=== PATIENT | male | born 1960 | race Two or more races ===

== ENCOUNTER 2020-05-09 08:29 | Inpatient (IN) | payer OTHER ==
[~2020-05-09] VITALS: Ht 175.3 cm; Wt 73.7 kg
[2020-05-09] VITALS (17 sets, daily range): BP systolic 94–139; BP diastolic 43–79
[2020-05-09] MEDS ORDERED: Atropine Sulfate 0.4mg/ml inj IVP ONE (08:45)
[2020-05-09 09:04] LABS: BASOPHILS % (AUTO) 1.4 % (0.0-2.0); EOSINOPHILS % (AUTO) 1.8 % (0.0-3.0); HEMATOCRIT 44.9 % (42.0-52.0); HEMOGLOBIN 14.6 G/DL (14.2-18.0); LYMPHOCYTES % (AUTO) 44.4 % (20.0-45.0); MEAN CORPUSCULAR VOLUME 92 FL (80-99); MONOCYTES % (AUTO) 6.6 % (1.0-10.0); NEUTROPHILS % (AUTO) 45.8 % (45.0-75.0); PLATELET COUNT 236 K/UL (150-450); RED BLOOD COUNT 4.88 M/UL (4.70-6.10); WHITE BLOOD COUNT 7.8 K/UL (4.8-10.8)
--- NOTE | 2020-05-09 09:27 | Emergency Room Report ---
History of Present Illness General Chief Complaint: Syncope Source: Patient, EMS Present Illness HPI Patient is a 59-year-old male who presents after increased generalized weakness and a syncopal episode. Patient a prior history of hypertension had been followed at [facility]. Patient had been noted to be bradycardic by paramedics. He had not been having any vomiting or diarrhea recently. Denies any current chest discomfort or chest pressure.Patient had been at a store.Denies any recent bleeding. Allergies: Coded Allergies: No Known Allergies (Unverified , 05/09/20) COVID-19 Screening Contact w/high risk pt: No Recent Travel to affected area: No Experienced COVID-19 symptoms?: No COVID-19 Testing performed QUARTER DOPER: No Patient History Past Medical History: see triage record Past Surgical History: none Reviewed Nursing Documentation: PMH: Agreed; PSxH: Agreed Nursing Documentation-PMH Hx Hypertension: Yes Review of Systems All Other Systems: negative except mentioned in HPI Physical Exam Vital Signs Date Time Temp Pulse Resp B/P (MAP) Pulse Ox O2 Delivery O2 Flow Rate FiO2 05/09/20 08:22 97.3 37 18 98/54 (69) 05/09/20 08:30 99 Sp02 EP Interpretation: reviewed, normal General Appearance: normal inspection, well appearing, no apparent distress, alert, GCS 15 Head: atraumatic ENT: normal ENT inspection, hearing grossly normal, normal voice Neck: normal inspection, full range of motion, supple, no bony tend Respiratory: normal inspection, lungs clear, normal breath sounds, no respiratory distress, no retraction, no wheezing Cardiovascular #1: no edema, bradycardia Gastrointestinal: normal inspection, normal bowel sounds, non tender, soft, no guarding, no hernia Genitourinary: no CVA tenderness Musculoskeletal: normal inspection, back normal, normal range of motion Neurologic: alert, motor strength/tone normal, 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 Differential diagnosis include was not limited to coronavirus infection, myocardial infarction, medication overdose, sick sinus syndrome among others. Because of complexity of patient's case laboratory tests and imaging studies were ordered. Patient's initial EKG showed bradycardia with wide complex QRS consistent with possible escape rhythm. Patient was given atropine. He was noted to have some improvement in heart rate and blood pressure after medications. Patient was noted to be awake alert and denied having any chest discomfort. Patient is taking Norvasc and this may be contributing the patient's bradycardia. Patient was discussed with [facility] for possible transfer and he authorized for admission to [facility]. Patient's initial troponin was negative. Repeat troponin did not show any significant elevation however it was slightly more increased than baseline. Dr. Jay Colorado was contacted for inpatient management due to capitated physician. Labs Test 05/09/20 08:35 05/09/20 09:57 White Blood Count 7.8 K/UL (4.8-10.8) Red Blood Count 4.88 M/UL (4.70-6.10) Hemoglobin 14.6 G/DL (14.2-18.0) Hematocrit 44.9 % (42.0-52.0) Mean Corpuscular Volume 92 FL (80-99) Mean Corpuscular Hemoglobin 29.9 PG (27.0-31.0) Mean Corpuscular Hemoglobin Concent 32.4 G/DL (32.0-36.0) Red Cell Distribution Width 12.0 % (11.6-14.8) Platelet Count 236 K/UL (150-450) Mean Platelet Volume 6.6 FL (6.5-10.1) Neutrophils (%) (Auto) 45.8 % (45.0-75.0) Lymphocytes (%) (Auto) 44.4 % (20.0-45.0) Monocytes (%) (Auto) 6.6 % (1.0-10.0) Eosinophils (%) (Auto) 1.8 % (0.0-3.0) Basophils (%) (Auto) 1.4 % (0.0-2.0) Prothrombin Time 10.7 SEC (9.30-11.50) Prothromb Time International Ratio 1.0 (0.9-1.1) Activated Partial Thromboplast Time 23 SEC (23-33) D-Dimer 0.21 mg/L FEU (0.00-0.49) Sodium Level 145 MMOL/L (136-145) Potassium Level 3.6 MMOL/L (3.5-5.1) Chloride Level 109 MMOL/L (98-107) Carbon Dioxide Level 26 MMOL/L (21-32) Anion Gap 10 mmol/L (5-15) Blood Urea Nitrogen 20 mg/dL (7-18) Creatinine 1.3 MG/DL (0.55-1.30) Estimat Glomerular Filtration Rate 56.3 mL/min (>60) Glucose Level 129 MG/DL (74-106) Calcium Level 8.5 MG/DL (8.5-10.1) Total Bilirubin 0.5 MG/DL (0.2-1.0) Aspartate Amino Transf (AST/SGOT) 24 U/L (15-37) Alanine Aminotransferase (ALT/SGPT) 26 U/L (12-78) Alkaline Phosphatase 54 U/L (46-116) Pro-B-Type Natriuretic Peptide 124 pg/mL (0-125) Total Protein 6.8 G/DL (6.4-8.2) Albumin 3.4 G/DL (3.4-5.0) Globulin 3.4 g/dL Albumin/Globulin Ratio 1.0 (1.0-2.7) Lipase 204 U/L (73-393) Troponin I 0.046 ng/mL (0.000-0.056) EKG Diagnostic Results Rate: bradycardiac Rhythm: other - sinus vs junctional Rhythm Strip Diag. Results EP Interpretation: yes Rhythm: no PVC's, no ectopy Last Vital Signs Date Time Temp Pulse Resp B/P (MAP) Pulse Ox O2 Delivery O2 Flow Rate FiO2 05/09/20 09:04 47 106/47 05/09/20 08:54 16 99 05/09/20 08:30 97.3 Status: improved Disposition: ADMITTED INPATIENT Condition: Critical Referrals: [facility] (PCP) Norbert Diaz MD May 09, 2020 09:27
[2020-05-09 09:29] LABS: ANION GAP 10 mmol/L (5-15); BLOOD UREA NITROGEN 20 mg/dL (7-18); CALCIUM 8.5 MG/DL (8.5-10.1); CARBON DIOXIDE 26 MMOL/L (21-32); CHLORIDE 109 MMOL/L (98-107); CREATININE 1.3 MG/DL (0.55-1.30); POTASSIUM 3.6 MMOL/L (3.5-5.1); SODIUM 145 MMOL/L (136-145)
[2020-05-09] MEDS ORDERED: HYDROCHLOROTH12.5 MG ORAL (09:37)
[2020-05-09] MEDS ORDERED: LOSARTAN POTASS25 MG ORAL (09:37)
[2020-05-09] MEDS ORDERED: AMLODIPINE BESY10 MG ORAL (09:37)
[2020-05-09 09:40] LABS: ALANINE AMINOTRANSFERASE 26 U/L (12-78); ALBUMIN 3.4 G/DL (3.4-5.0); ALKALINE PHOSPHATASE 54 U/L (46-116); ASPARTATE AMINO TRANSFERASE 24 U/L (15-37); BILIRUBIN,TOTAL 0.5 MG/DL (0.2-1.0)
--- NOTE | 2020-05-09 13:14 | History and Physical Report ---
DATE OF ADMISSION: 05/09/2020 REASON FOR ADMISSION: Heart block. HISTORY OF PRESENT ILLNESS: This is a 59-year-old male, who presents with weakness and syncopal episode. The patient with history of hypertension. The patient noted to be significantly bradycardic. In the emergency room, he was given atropine and noted to have significant sinus bradycardia. PAST MEDICAL HISTORY: Notable for hypertension. MEDICATIONS: Reviewed. ALLERGIES: Reviewed. SOCIAL HISTORY: The patient is otherwise independent. REVIEW OF SYSTEMS: Otherwise negative. PHYSICAL EXAMINATION: GENERAL: A well-developed male, comfortable at present. VITAL SIGNS: Essentially stable with the exception of bradycardia. Admit patient's heart rate was 37, improved to 53. HEENT: Negative. NECK: Supple. LUNGS: Good air entry. CARDIAC: Normal S1, S2, bradycardic. ABDOMEN: Soft, nontender. EXTREMITIES: No edema. LABORATORY DATA: Reviewed, essentially insignificant. BUN is only 20. Troponins are negative. Swab negative for COVID. IMPRESSION: 1. Symptomatic bradycardia, possible junctional rhythm. 2. Hypertension. RECOMMENDATION: 1. ICU management. 2. External pacer if needed. 3. Cardiology evaluation. 4. Monitor blood pressure. 5. DVT prophylaxis and discharge to [facility] once stable. 6. Consider pacemaker pending further evaluation and recommendations. Jay Colorado M.D. DR: GROVER JOB#: [id number] CC:
[2020-05-09] MEDS: D5 1/2NS w/KCl 20mEq 1,000 ML IV SCH ×2 (13:19→20:26)
[2020-05-09] MEDS ORDERED: D5 1/2NS w/KCl 20mEq 1,000 ML IV SCH (13:30)
--- NOTE | 2020-05-09 16:04 | Diagnostic Imaging Report ---
Indication: Shortness of breath Technique: One view of the chest Comparison: none Findings: The lungs and pleural spaces are clear. The heart size is normal Impression: Negative
[2020-05-10] VITALS (27 sets, daily range): BP systolic 100–147; BP diastolic 44–121
--- NOTE | 2020-05-10 01:45 | Consultation ---
DATE OF CONSULTATION: 05/09/2020 CARDIOLOGY CONSULTATION CONSULTING PHYSICIAN: Osorio Cho MD. REASON FOR CONSULTATION: Heart block. HISTORY OF PRESENT ILLNESS: This is a 59-year-old male with a history of hypertension, but no other cardiovascular disease. He has had diarrhea and abdominal discomfort since yesterday afternoon. Today, symptoms worsened, but he also felt lightheaded, dizzy and had a witnessed syncopal episode. According to his nephew, who saw him passed out. The patient did not have any loss of bladder or bowel function or seizure activity and he did not have any injury, but just slowly fell down and had his eyes "go backwards." Upon arousal, he was without any confusion either. The patient denies any prior episodes or near syncopal sensation last night. In the emergency room, the patient was given atropine because of significant sinus bradycardia with some improvement in his heart rate noted. PAST MEDICAL HISTORY: Hypertension, , and hyperlipidemia. ALLERGIES: None noted. MEDICATIONS: Prior to admission, losartan, hydrochlorothiazide, amlodipine, Zetia. FAMILY HISTORY: Noncontributory. SOCIAL HISTORY: Negative for smoking, alcohol, or substance abuse. REVIEW OF SYSTEMS: Negative other than noted above. PHYSICAL EXAMINATION: GENERAL: Alert and in no distress. VITAL SIGNS: Blood pressure 105/48, heart rate 55, respirations 18. Monitored sinus bradycardia with bundle-branch block. NECK: Jugular venous pressure normal. LUNGS: Clear. CARDIAC: Regular rhythm. Slow rate. Normal S1, S2 with no murmur. ABDOMEN: Soft. EXTREMITIES: No edema. LABORATORY AND DIAGNOSTIC DATA: EKG, severe sinus bradycardia with left bundle-branch block. TSH 2.2 and troponin negative x2 with potassium 3.6, BUN 20, and creatinine of 1.3. Normal liver function studies and glucose of 129. Natriuretic peptide is 124. IMPRESSION: Advanced conduction system disease with symptomatic bradycardia, resulting in syncope. This may be due to underlying conduction system disease exacerbated by increased vagal tone due to his acute GI symptoms namely diarrhea. PLAN: Recommend ICU cardiac monitoring, telemetry, hydration, potassium replacement as needed. Check magnesium level. Echocardiogram to evaluate further for structural heart disease. Consideration for permanent pacemaker. Atropine at bedside. Osorio Cho M.D. DR: KATERINE JOB#: [id number] CC:
[2020-05-10] MEDS: D5 1/2NS w/KCl 20mEq 1,000 ML IV SCH ×4 (02:50→22:10)
[2020-05-10 06:10] LABS: ALANINE AMINOTRANSFERASE 24 U/L (12-78); ALBUMIN 3.3 G/DL (3.4-5.0); ALKALINE PHOSPHATASE 54 U/L (46-116); ANION GAP 9 mmol/L (5-15); ASPARTATE AMINO TRANSFERASE 21 U/L (15-37); BILIRUBIN,TOTAL 0.5 MG/DL (0.2-1.0); BLOOD UREA NITROGEN 15 mg/dL (7-18); CARBON DIOXIDE 24 MMOL/L (21-32); CHLORIDE 109 MMOL/L (98-107); POTASSIUM 3.8 MMOL/L (3.5-5.1); SODIUM 142 MMOL/L (136-145)
--- NOTE | 2020-05-10 08:35 | General Progress Note ---
Assessment/Plan Assessment/Plan: IMPRESSION: 1. Symptomatic bradycardia, possible junctional rhythm. 2. Hypertension. PLAN atropine PRN ICU care echo may need pacemaker defer to cards impression, plan, and exam edited and reviewed in detail care discussed with RN Subjective Allergies: Coded Allergies: No Known Allergies (Unverified , 05/09/20) Subjective remains bradycardic cards noted Objective Last 24 Hour Vital Signs Date Time Temp Pulse Resp B/P (MAP) Pulse Ox O2 Delivery O2 Flow Rate FiO2 05/10/20 07:00 43 13 131/70 (90) 100 05/10/20 06:00 96.7 47 14 117/68 (84) 100 05/10/20 05:00 40 19 131/66 (87) 99 05/10/20 04:00 37 05/10/20 04:00 Room Air 05/10/20 04:00 37 14 117/64 (81) 97 05/10/20 03:00 45 14 116/62 (80) 99 05/10/20 02:00 39 14 102/44 (63) 98 05/10/20 01:00 37 15 114/63 (80) 98 05/10/20 00:00 97.1 40 15 106/46 (66) 97 05/10/20 00:00 Room Air 05/10/20 00:00 40 05/09/20 23:00 41 15 127/58 (81) 98 05/09/20 22:00 45 15 132/68 (89) 98 05/09/20 21:00 43 15 109/47 (67) 97 05/09/20 20:00 98.1 52 13 132/79 (96) 99 05/09/20 20:00 52 05/09/20 20:00 Room Air 05/09/20 19:00 44 15 121/62 (81) 97 05/09/20 18:00 46 14 121/63 (82) 100 05/09/20 17:00 52 14 123/63 (83) 100 05/09/20 16:00 98.6 46 15 121/59 (79) 99 05/09/20 16:00 Room Air 05/09/20 15:00 46 14 117/60 (79) 99 05/09/20 14:00 72 13 114/61 (78) 98 05/09/20 13:00 62 19 116/59 (78) 99 05/09/20 12:58 2.0 05/09/20 12:43 Room Air 05/09/20 12:00 55 05/09/20 12:00 98.2 56 19 139/61 (87) 100 05/09/20 11:45 97.5 55 18 105/48 97 Room Air 05/09/20 11:04 97.6 53 17 108/50 98 Room Air 05/09/20 09:29 51 106/47 05/09/20 09:04 47 106/47 05/09/20 08:54 46 16 96/48 99 Intake and Output 05/09/20 05/10/20 19:00 07:00 Intake Total 3230 ml 1960 ml Output Total 550 ml 1800 ml Balance 2680 ml 160 ml Intake Oral 480 ml 350 ml IV Total 2750 ml 1610 ml Output Urine Total 550 ml 1800 ml # Voids 1 Laboratory Tests 05/09/20 08:35: White Blood Count 7.8, Red Blood Count 4.88, Hemoglobin 14.6, Hematocrit 44.9, Mean Corpuscular Volume 92, Mean Corpuscular Hemoglobin 29.9, Mean Corpuscular Hemoglobin Concent 32.4, Red Cell Distribution Width 12.0, Platelet Count 236, Mean Platelet Volume 6.6, Neutrophils (%) (Auto) 45.8, Lymphocytes (%) (Auto) 44.4, Monocytes (%) (Auto) 6.6, Eosinophils (%) (Auto) 1.8, Basophils (%) (Auto ) 1.4, Prothrombin Time 10.7, Prothromb Time International Ratio 1.0, Activated Partial Thromboplast Time 23, D-Dimer 0.21, Sodium Level 145, Potassium Level 3.6, Chloride Level 109H, Carbon Dioxide Level 26, Anion Gap 10, Blood Urea Nitrogen 20H, Creatinine 1.3, Estimat Glomerular Filtration Rate 56.3, Glucose Level 129H, Calcium Level 8.5, Total Bilirubin 0.5, Aspartate Amino Transf (AST/ SGOT) 24, Alanine Aminotransferase (ALT/SGPT) 26, Alkaline Phosphatase 54, Troponin I 0.041, Pro-B-Type Natriuretic Peptide 124, Total Protein 6.8, Albumin 3.4, Globulin 3.4, Albumin/Globulin Ratio 1.0, Lipase 204 05/09/20 09:57: Troponin I 0.046, Thyroid Stimulating Hormone (TSH) 2.273 05/10/20 04:30: Sodium Level 142, Potassium Level 3.8, Chloride Level 109H, Carbon Dioxide Level 24, Anion Gap 9, Blood Urea Nitrogen 15, Creatinine 1.0, Estimat Glomerular Filtration Rate > 60, Glucose Level 109H, Calcium Level 8.0L, Total Bilirubin 0.5, Aspartate Amino Transf (AST/SGOT) 21, Alanine Aminotransferase ( ALT/SGPT) 24, Alkaline Phosphatase 54, Total Protein 6.6, Albumin 3.3L, Globulin 3.3, Albumin/Globulin Ratio 1.0, Magnesium Level 2.1 Height (Feet): 5 Height (Inches): 9.00 Weight (Pounds): 171 Objective GENERAL: A well-developed male, comfortable at present. HEENT: Negative. NECK: Supple. LUNGS: Good air entry. CARDIAC: Normal S1, S2, bradycardic. ABDOMEN: Soft, nontender. EXTREMITIES: No edema. Jay Colorado MD May 10, 2020 08:35
[2020-05-10] MEDS: Losartan 50mg tab ORAL SCH (09:31)
[2020-05-10] MEDS: Heparin 5000 units/ml inj SUBQ SCH ×2 (09:33→20:51)
--- NOTE | 2020-05-10 18:18 | Cardiac Electrophysiology PN ---
Subjective Subjective Patient seen and examined. Agree with PPM implant. Will keep NPO after [place]. If authorization obtained from [place] will proceed tomorrow depending on OR availability Dictated# [id number] Objective Last 24 Hour Vital Signs Date Time Temp Pulse Resp B/P (MAP) Pulse Ox O2 Delivery O2 Flow Rate FiO2 05/10/20 17:00 55 11 138/69 (92) 100 05/10/20 16:00 Room Air 05/10/20 16:00 53 05/10/20 16:00 98.8 45 16 136/83 (100) 99 05/10/20 15:00 48 16 126/58 (80) 100 05/10/20 14:00 51 11 127/64 (85) 100 05/10/20 13:00 51 18 125/61 (82) 98 05/10/20 12:09 53 05/10/20 12:09 58 18 100/86 (91) 98 05/10/20 12:08 Room Air 05/10/20 11:07 98.3 48 18 135/65 (88) 99 05/10/20 11:00 52 14 146/91 (109) 100 05/10/20 10:00 53 15 139/73 (95) 100 05/10/20 09:31 130/61 05/10/20 09:24 55 17 130/61 (84) 98 05/10/20 09:18 57 130/67 (88) 05/10/20 09:00 56 13 134/121 (125) 99 05/10/20 08:00 Room Air 05/10/20 08:00 98.8 57 17 129/103 (112) 98 05/10/20 08:00 54 05/10/20 07:00 43 13 131/70 (90) 100 05/10/20 06:00 96.7 47 14 117/68 (84) 100 05/10/20 05:00 40 19 131/66 (87) 99 05/10/20 04:00 37 05/10/20 04:00 Room Air 05/10/20 04:00 37 14 117/64 (81) 97 05/10/20 03:00 45 14 116/62 (80) 99 05/10/20 02:00 39 14 102/44 (63) 98 05/10/20 01:00 37 15 114/63 (80) 98 05/10/20 00:00 97.1 40 15 106/46 (66) 97 05/10/20 00:00 Room Air 05/10/20 00:00 40 05/09/20 23:00 41 15 127/58 (81) 98 05/09/20 22:00 45 15 132/68 (89) 98 05/09/20 21:00 43 15 109/47 (67) 97 05/09/20 20:00 98.1 52 13 132/79 (96) 99 05/09/20 20:00 52 05/09/20 20:00 Room Air 05/09/20 19:00 44 15 121/62 (81) 97 Intake and Output 05/09/20 05/10/20 19:00 07:00 Intake Total 3230 ml 2160 ml Output Total 550 ml 1800 ml Balance 2680 ml 360 ml Intake Oral 480 ml 550 ml IV Total 2750 ml 1610 ml Output Urine Total 550 ml 1800 ml # Voids 1 Laboratory Tests Test 05/10/20 04:30 Sodium Level 142 MMOL/L (136-145) Potassium Level 3.8 MMOL/L (3.5-5.1) Chloride Level 109 MMOL/L (98-107) H Carbon Dioxide Level 24 MMOL/L (21-32) Anion Gap 9 mmol/L (5-15) Blood Urea Nitrogen 15 mg/dL (7-18) Creatinine 1.0 MG/DL (0.55-1.30) Estimat Glomerular Filtration Rate > 60 mL/min (>60) Glucose Level 109 MG/DL (74-106) H Calcium Level 8.0 MG/DL (8.5-10.1) L Magnesium Level 2.1 MG/DL (1.8-2.4) Total Bilirubin 0.5 MG/DL (0.2-1.0) Aspartate Amino Transf (AST/SGOT) 21 U/L (15-37) Alanine Aminotransferase (ALT/SGPT) 24 U/L (12-78) Alkaline Phosphatase 54 U/L (46-116) Total Protein 6.6 G/DL (6.4-8.2) Albumin 3.3 G/DL (3.4-5.0) L Globulin 3.3 g/dL Albumin/Globulin Ratio 1.0 (1.0-2.7) Microbiology Date/Time Source Procedure Growth Status 05/09/20 09:36 Nasopharynx SARS-CoV-2 RdRp Gene Assay - Final Complete 05/09/20 11:11 Rectum Received Reji Biswas MD May 10, 2020 18:18
--- NOTE | 2020-05-10 21:59 | Consultation ---
DATE OF CONSULTATION: 05/10/2020 CARDIAC ELECTROPHYSIOLOGY CONSULTATION CONSULTING PHYSICIAN: Reji Biswas MD. REFERRING PHYSICIAN: Osorio Cho MD. REASON FOR CONSULTATION: Profound bradycardia due to complete heart block and heart rate in the 30s. HISTORY OF PRESENT ILLNESS: The patient is a very pleasant 59-year-old gentleman with history of hypertension and no cardiovascular disease, who was admitted to the hospital with a syncopal episode that was witnessed. This was witnessed by the patient's nephew. The patient did not have any bowel or bladder dysfunction or seizure-like activity. Upon arousal, the patient did not have any confusion either. In the emergency room, the patient was found to be with profound bradycardia with complete left bundle-branch block and sinus bradycardia with rate in the 30s, and the patient received atropine and was admitted to intensive care unit. Cardiac electrophysiology consultation was requested by Dr. Cho, who is a screwdown operator to evaluate the patient for permanent pacemaker placement. REVIEW OF SYSTEMS: Negative other than what was mentioned in the history of present illness. PAST MEDICAL HISTORY: Includes hypertension only and hyperlipidemia. MEDICATIONS: Include losartan, hydrochlorothiazide, amlodipine, and Zetia. It is of note the patient is off any AV miri blocking agents. FAMILY HISTORY: Noncontributory. SOCIAL HISTORY: Does not smoke or drink alcohol. PHYSICAL EXAMINATION: VITAL SIGNS: Show blood pressure of 138/69, pulse is 44, respirations 18, and he is afebrile. HEAD AND NECK: Showed no JVD or carotid bruit. LUNGS: Clear. CARDIOVASCULAR: Shows bradycardic S1 and S2 with no gallop or murmur. ABDOMEN: Soft. EXTREMITIES: No pitting edema. LABORATORY AND DIAGNOSTIC DATA: His EKG showed marked sinus bradycardia, rate of 37 with complete left bundle-branch block. His telemetry strip showed episodes of heart block with junctional rhythm in the 30s. Labs show white count of 7.8, hematocrit of 14.7, hematocrit of 45, and platelet count 236,000. Sodium 142, potassium 3.8, BUN of 15, creatinine of 1. Troponin negative x2 and TSH is 2.2. ASSESSMENT AND PLAN: Profound bradycardia causing syncope in the patient with underlying complete left bundle-branch block and intermittent complete heart block with junctional escape in the 30s. The patient is not on any sinus miri or AV miri blocking agents. Thyroid function tests are within normal range and he was already ruled out for myocardial infarction. The patient's echocardiogram also showed normal left ventricular systolic function. He is a class 1 indication for permanent pacemaker implantation; however, the patient is a [place] member. We will keep the patient in ICU until the patient is either transferred to [place] or we will get authorization to proceed with permanent pacemaker placement. I discussed with the patient the risks, benefits, and alternatives of permanent pacemaker implantation. He agrees and would like to proceed. Reji Biswas M.D. DR: Selena JOB#: [id number] CC:
--- NOTE | 2020-05-10 23:00 | Progress Note ---
DATE: 05/10/2020 SUBJECTIVE: The patient has remained in bed rest. Monitored rhythm, sinus bradycardia with arrhythmia, no pauses. Left bundle-branch block persists. No nausea, vomiting. No diarrhea. No chest pain or shortness of breath. Echocardiogram revealed normal ejection fraction and mild concentric hypertrophy. The patient now relays that he has had slow heart rates in the past and has been told by other physicians that he may need a pacemaker. PHYSICAL EXAMINATION: VITAL SIGNS: Blood pressure 147/70, pulse 58, respirations 16. LUNGS: Clear. CARDIAC: Regular. Slow S1 and S2. ABDOMEN: Soft. EXTREMITIES: No edema. IMPRESSION: 1. Advanced symptomatic conduction system disease. 2. Persisting sinus bradycardia and left bundle-branch block with syncopal episodes yesterday. PLAN: 1. Keep electrophysiologic evaluation urgently for permanent pacemaker. 2. Hold antihypertensives, namely losartan, amlodipine, hydrochlorothiazide. Osorio Cho M.D. DR: JAI JOB#: [id number] CC:
[2020-05-11] VITALS (43 sets, daily range): BP systolic 103–163; BP diastolic 47–93
[2020-05-11 05:07] LABS: BASOPHILS % (AUTO) 1.2 % (0.0-2.0); EOSINOPHILS % (AUTO) 2.3 % (0.0-3.0); HEMATOCRIT 44.6 % (42.0-52.0); HEMOGLOBIN 14.6 G/DL (14.2-18.0); MEAN CORPUSCULAR VOLUME 92 FL (80-99); MONOCYTES % (AUTO) 7.2 % (1.0-10.0); NEUTROPHILS % (AUTO) 52.4 % (45.0-75.0); PLATELET COUNT 242 K/UL (150-450); RED BLOOD COUNT 4.84 M/UL (4.70-6.10); RED CELL DISTRIBUTION WIDTH 12.2 % (11.6-14.8); WHITE BLOOD COUNT 7.5 K/UL (4.8-10.8)
[2020-05-11] MEDS: D5 1/2NS w/KCl 20mEq 1,000 ML IV SCH ×3 (05:31→18:45)
[2020-05-11 06:04] LABS: ANION GAP 11 mmol/L (5-15); BLOOD UREA NITROGEN 12 mg/dL (7-18); CALCIUM 8.4 MG/DL (8.5-10.1); CARBON DIOXIDE 22 MMOL/L (21-32); CHLORIDE 108 MMOL/L (98-107); CREATININE 0.8 MG/DL (0.55-1.30); POTASSIUM 4.8 MMOL/L (3.5-5.1); SODIUM 141 MMOL/L (136-145)
[2020-05-11 06:19] LABS: INR 1.1 (0.9-1.1)
[2020-05-11] MEDS: Heparin 5000 units/ml inj SUBQ SCH ×2 (08:36→20:40)
[2020-05-11] MEDS: Losartan 50mg tab ORAL SCH (08:36)
[2020-05-11] MEDS ORDERED: Isovue-M 300 15ml INJ ONE (09:30)
[2020-05-11] MEDS ORDERED: Lidocaine 1% Plain 30 ml INJ ONE (09:30)
[2020-05-11] MEDS ORDERED: Sodium Chloride 10ml vial INJ ONE ×2 (10:27→10:28)
[2020-05-11] MEDS ORDERED: LR 1000ml 1,000 ML IVLG SCH (10:35)
--- NOTE | 2020-05-11 10:38 | Pre-Procedure Note/Attestation ---
Pre-Procedure Note/Attestation Complete Prior to Procedure Planned Procedure: left Indications for Procedure Pre-Operative Diagnosis: Symptomatic bradycardia, SSS, Intermittent CHB, Syncope Attestation I attest that I discussed the nature of the procedure; its benefits; risks and complications; and alternatives (and the risks and benefits of such alternatives ), prior to the procedure, with the patient (or the patient's legal pharmaceutical sales representative). I attest that, if there was a reasonable possibility of needing a blood transfusion, the patient (or the patient's legal pharmaceutical sales representative) was given the [facility] standardized written summary, pursuant to the Bal Rajiv Blood Safety Act ([place] Health and Safety Code # 1645, as amended). I attest that I re-evaluated the patient just prior to the surgery and that there has been no change in the patient's H&P, except as documented below: Reji Biswas MD May 11, 2020 10:38
--- NOTE | 2020-05-11 10:39 | Anethesia Preoperative Eval ---
Anesthesia Pre-op PMH/ROS General Date of Evaluation: May 11, 2020 Time of Evaluation: 10:31 Anesthesiologist: Fish ASA Score: ASA 3 Mallampati Score Class I : Soft palate, uvula, fauces, pillars visible Class II: Soft palate, uvula, fauces visible Class III: Soft palate, base of uvula visible Class IV: Only hard plate visible Mallampati Classification: Class II Surgeon: Zulay Diagnosis: Bradycardia, CHB Surgical Procedure: Permanent Pacemaker Placement Anesthesia History: none Family History: no anesthesia problems Allergies: Coded Allergies: No Known Allergies (Unverified , 05/09/20) Medications: see eMAR Patient NPO?: Yes Past Medical History Cardiovascular: Reports: HTN, arrhythmia - CHB Hr=30s Anesthesia Pre-op Phys. Exam Physician Exam Last Vital Signs Date Time Temp Pulse Resp B/P (MAP) Pulse Ox O2 Delivery O2 Flow Rate FiO2 05/11/20 10:00 59 16 115/93 (100) 97 05/11/20 08:00 98.1 05/11/20 08:00 Room Air 05/09/20 12:58 2.0 Constitutional: NAD Neurologic: CN 2-12 intact Cardiovascular: RRR Respiratory: CTA Gastrointestinal: S/NT/ND Airway Exam Mallampati Score: Class II MO: full ROM: full Teeth: missing, intact Anesthesia Pre-op A/P Labs Hematology Test 05/11/20 03:40 White Blood Count 7.5 K/UL (4.8-10.8) Red Blood Count 4.84 M/UL (4.70-6.10) Hemoglobin 14.6 G/DL (14.2-18.0) Hematocrit 44.6 % (42.0-52.0) Mean Corpuscular Volume 92 FL (80-99) Mean Corpuscular Hemoglobin 30.1 PG (27.0-31.0) Mean Corpuscular Hemoglobin Concent 32.7 G/DL (32.0-36.0) Red Cell Distribution Width 12.2 % (11.6-14.8) Platelet Count 242 K/UL (150-450) Mean Platelet Volume 6.5 FL (6.5-10.1) Neutrophils (%) (Auto) 52.4 % (45.0-75.0) Lymphocytes (%) (Auto) 37.0 % (20.0-45.0) Monocytes (%) (Auto) 7.2 % (1.0-10.0) Eosinophils (%) (Auto) 2.3 % (0.0-3.0) Basophils (%) (Auto) 1.2 % (0.0-2.0) Coagulation Test 05/11/20 03:40 Prothrombin Time 11.7 SEC (9.30-11.50) H Prothromb Time International Ratio 1.1 (0.9-1.1) Activated Partial Thromboplast Time 28 SEC (23-33) Chemistry Test 05/11/20 03:40 Sodium Level 141 MMOL/L (136-145) Potassium Level 4.8 MMOL/L (3.5-5.1) Chloride Level 108 MMOL/L (98-107) H Carbon Dioxide Level 22 MMOL/L (21-32) Anion Gap 11 mmol/L (5-15) Blood Urea Nitrogen 12 mg/dL (7-18) Creatinine 0.8 MG/DL (0.55-1.30) Estimat Glomerular Filtration Rate > 60 mL/min (>60) Glucose Level 93 MG/DL (74-106) Calcium Level 8.4 MG/DL (8.5-10.1) L Risk Assessment & Plan Assessment: ASA 3 Plan: TIVA Status Change Before Surgery: No Pre-Antibiotics Dru Gram Ancef IV Given Within 1 Hr of Incision: Yes Time Given: 10:46 Aubrey Whitten MD May 11, 2020 10:39
--- NOTE | 2020-05-11 10:43 | Immediate Post-Op Evaluation ---
Immediate Post-Op Evalulation Immediate Post-Op Evalulation Procedure: Permanent Pacemaker Placement Date of Evaluation: May 11, 2020 Time of Evaluation: 12:08 IV Fluids: 400 LR Blood Products: 0 Estimated Blood Loss: 5 Urinary Output: 0 Blood Pressure Systolic: 108 Blood Pressure Diastolic: 61 Pulse Rate: 70 Respiratory Rate: 16 O2 Sat by Pulse Oximetry: 100 Temperature (Fahrenheit): 97.8 Pain Score (1-10): 2 Nausea: No Vomiting: No Complications 0 Patient Status: awake, reacts, patent, none Hydration Status: adequate Dru Gram Ancef IV Given Within 1 Hr of Incision: Yes Time Given: 10:46 Aubrey Whitten MD May 11, 2020 10:43
[2020-05-11] MEDS ORDERED: Meperidine 25mg/0.5ml Inj (FOR RIGORS ONLY) IV PRN (10:45)
[2020-05-11] MEDS ORDERED: oxyCODONE HCL/Acetaminophen 5/325mg ORAL PRN (10:45)
[2020-05-11] MEDS ORDERED: Labetalol 5mg/ml 20ml vial IV PRN (10:45)
[2020-05-11] MEDS ORDERED: Midazolam 2mg/2ml Inj IVP PRN (10:45)
[2020-05-11] MEDS ORDERED: Metoclopramide 10mg/2ml Inj IVP PRN (10:45)
[2020-05-11] MEDS ORDERED: Atropine Sulfate 0.4mg/ml inj IVP PRN (10:45)
[2020-05-11] MEDS ORDERED: fentaNYL 100 mcg/2 mL IV PRN (10:45)
[2020-05-11] MEDS ORDERED: Hydromorphone 0.5mg/0.5ml inj IVP PRN (10:45)
[2020-05-11] MEDS ORDERED: LORazepam Inj 2mg/ml 1ml IV PRN (10:45)
[2020-05-11] MEDS ORDERED: HYDROcodone/Acetamin 5/325 tab ORAL PRN (10:45)
[2020-05-11] MEDS ORDERED: HYDROcodone/Acetamin 7.5/325 tab ORAL PRN (10:45)
[2020-05-11] MEDS ORDERED: DiphenhydrAMINE 50mg/ml Inj IVP PRN (10:45)
[2020-05-11] MEDS ORDERED: Glycopyrrolate 0.2mg/ml 1ml Vial ONE (10:57)
[2020-05-11] MEDS ORDERED: Atropine Inj 1mg/10ml Syr ONE (11:04)
[2020-05-11] MEDS ORDERED: NS 275ml IRRIG ONE (11:18)
--- NOTE | 2020-05-11 11:50 | Brief Operative Note ---
Immediate Post Operative Note Operative Note Pre-op Diagnosis: Symptomatic bradycardia, SSS, Intermittent CHB, Syncope Procedure: DDD [employer] PPM implant Post-op Diagnosis: same as pre-op Specimen: none Complications: none Condition: stable Fluids: none Estimated Blood Loss: minimal Implant(s) used?: Yes Reji Biswas MD May 11, 2020 11:50
[2020-05-11] MEDS ORDERED: Morphine Sulfate 2mg/ml Inj(IV/IM USE ONLY) IVP PRN (12:00)
--- NOTE | 2020-05-11 13:28 | Diagnostic Imaging Report ---
Indication: Status post pacemaker insertion Technique: One view of the chest Comparison: 05/09/2020 Findings: Lungs and pleural spaces are clear. The heart size is normal. Left chest pacemaker is now present, lead tips in the expected level of the right atrium and right ventricular apex. No pneumothorax. Impression: Interim pacemaker placement. No radiographically evident complication or unusual features
[2020-05-11] MEDS: ceFAZolin sod 1 GM in D5W 55 ML IVP SCH ×2 (14:54→21:32)
--- NOTE | 2020-05-11 15:06 | Diagnostic Imaging Report ---
INDICATION: Pain, intraoperative TECHNIQUE: Intraoperative imaging Fluoroscopy time: 66.8 seconds Total dose: 0.352 mGym2 Total number of images: One COMPARISON: None FINDINGS: Intraoperative images demonstrate pacemaker leads projected in the right atrium and right ventricle IMPRESSION: Intraoperative imaging as described
--- NOTE | 2020-05-11 17:30 | Operative Note - Dictated ---
DATE OF OPERATION: 05/11/2020 PERMANENT PACEMAKER IMPLANTATION SURGEON: Reji Biswas MD. REFERRING PHYSICIAN: Osorio Cho MD. INDICATION FOR PROCEDURE: Syncope in a patient with profound bradycardia and not due to correctable cause, intermittent complete heart block, junctional rhythm in the 130s. PROCEDURE PERFORMED: 1. Dual-chamber permanent pacemaker implantation. 2. Fluoroscopic supervision and interpretation. 3. Pacemaker program during initial implant. OPERATIVE REPORT: Patient was brought into operating room in the fasting state and after informed consent was obtained. Time-out was performed. Patient was prepped and draped in usual fashion. Anesthesia was provided by Dr. Aubrey Whitten. After prep and drape under sterile condition, a total of 20 mL lidocaine was given to left prepectoralis area. An incision was made along the left deltopectoral groove. Sharp and blunt dissection was made to the level of pectoralis fascia. The cephalic vein was isolated and cutdown was performed. The right atrial and right ventricular lead was placed through this access and was placed in right atrial appendage. Right ventricular apex with excellent sensing and pacing parameters. Both leads were then affixed to underlying pectoralis fascia. A pocket was made close to the venous access site and was irrigated with antibiotic solution. Four leads were then connected to the pacemaker and left in the pocket. The pocket was then closed in three layers using 2-0 Vicryl and Dermabond. Patient suffered no immediate complications from the procedure and was transferred to recovery room in stable condition. FINDINGS: The pacemaker is from [employer] as well as [facility] 2272, serial number [id number]. The atrial lead is from [employer], it is 2088TC 52 centimeter, serial number [id number]. Right ventricular lead is from [employer], it is Tendril STS, 58 centimeter 2088TC, serial number [id number]. The P-wave amplitude is more than 5 millivolts, threshold is 0.75 volts at 0.4 milliseconds, impedance of 460 ohms. R-wave is 4.9 millivolts, threshold is 0.75 volts at 0.4 milliseconds, impedance of 590 ohms. IMPRESSION: 1. Successful dual-chamber permanent pacemaker implantation. 2. Pacemaker was programmed, lower rate of 60, upper rate of 120. 3. No immediate complications from the procedure. Reji Biswas M.D. DR: KEI JOB#: [id number] CC:
--- NOTE | 2020-05-11 18:30 | General Progress Note ---
Assessment/Plan Assessment/Plan: IMPRESSION: 1. Symptomatic bradycardia, s/p pacemaker 2. Hypertension. PLAN postop care defer to cards as to dc in am impression, plan, and exam edited and reviewed in detail care discussed with RN Subjective Allergies: Coded Allergies: No Known Allergies (Unverified , 05/09/20) Subjective seen earlier s/p pacemaker Objective Last 24 Hour Vital Signs Date Time Temp Pulse Resp B/P (MAP) Pulse Ox O2 Delivery O2 Flow Rate FiO2 05/11/20 16:00 Room Air 05/11/20 16:00 60 14 146/73 (97) 99 05/11/20 15:30 61 17 155/66 (95) 99 05/11/20 15:15 61 18 147/80 (102) 99 05/11/20 15:00 63 16 158/77 (104) 99 05/11/20 14:45 60 17 153/82 (105) 99 05/11/20 14:30 60 17 159/83 (108) 99 05/11/20 14:15 60 16 160/85 (110) 98 05/11/20 14:00 60 15 144/79 (100) 98 05/11/20 13:45 60 16 138/74 (95) 100 05/11/20 13:30 60 18 157/84 (108) 100 05/11/20 13:20 60 05/11/20 13:15 60 14 127/77 (94) 100 05/11/20 13:12 Nasal Cannula 3.0 05/11/20 13:10 98.0 60 16 138/81 (100) 99 05/11/20 12:50 60 17 138/81 100 Nasal Cannula 3 05/11/20 12:45 97.6 60 16 136/76 100 Nasal Cannula 3 05/11/20 12:30 60 15 134/71 100 Nasal Cannula 3 05/11/20 12:15 60 19 127/69 100 Simple Mask 6 05/11/20 12:05 60 16 114/64 100 Simple Mask 6 05/11/20 12:01 60 18 114/69 100 Simple Mask 6 05/11/20 11:56 97.8 64 18 103/63 100 Simple Mask 6 05/11/20 11:54 70 16 100 05/11/20 10:00 59 16 115/93 (100) 97 05/11/20 09:00 49 16 141/68 (92) 100 05/11/20 08:36 130/67 05/11/20 08:00 98.1 44 15 130/67 (88) 99 05/11/20 08:00 49 05/11/20 08:00 Room Air 05/11/20 07:00 98.3 50 15 141/70 (93) 100 05/11/20 06:00 36 14 111/55 (73) 96 05/11/20 05:00 38 12 128/79 (95) 98 05/11/20 04:00 Room Air 05/11/20 04:00 42 05/11/20 04:00 42 6 126/73 (90) 99 05/11/20 03:00 40 14 133/61 (85) 100 05/11/20 02:00 36 18 133/77 (95) 100 05/11/20 01:00 38 15 116/54 (74) 97 05/11/20 00:00 98.0 36 15 110/47 (68) 97 05/11/20 00:00 Room Air 05/10/20 23:00 45 16 127/76 (93) 99 05/10/20 22:00 43 16 142/64 (90) 99 05/10/20 21:00 47 16 130/84 (99) 99 05/10/20 20:00 98.1 52 12 147/80 (102) 99 05/10/20 20:00 54 05/10/20 20:00 Room Air 05/10/20 19:00 52 12 133/65 (87) 99 Intake and Output 05/10/20 05/11/20 19:00 07:00 Intake Total 2360 ml 1745 ml Output Total 1140 ml 1400 ml Balance 1220 ml 345 ml Intake Oral 860 ml 120 ml IV Total 1500 ml 1625 ml Output Urine Total 1140 ml 1400 ml # Bowel Movements 3 3 Laboratory Tests 05/11/20 03:40: White Blood Count 7.5, Red Blood Count 4.84, Hemoglobin 14.6, Hematocrit 44.6, Mean Corpuscular Volume 92, Mean Corpuscular Hemoglobin 30.1, Mean Corpuscular Hemoglobin Concent 32.7, Red Cell Distribution Width 12.2, Platelet Count 242, Mean Platelet Volume 6.5, Neutrophils (%) (Auto) 52.4, Lymphocytes (%) (Auto) 37.0, Monocytes (%) (Auto) 7.2, Eosinophils (%) (Auto) 2.3, Basophils (%) (Auto ) 1.2, Prothrombin Time 11.7H, Prothromb Time International Ratio 1.1, Activated Partial Thromboplast Time 28, Sodium Level 141, Potassium Level 4.8, Chloride Level 108H, Carbon Dioxide Level 22, Anion Gap 11, Blood Urea Nitrogen 12, Creatinine 0.8, Estimat Glomerular Filtration Rate > 60, Glucose Level 93, Calcium Level 8.4L Height (Feet): 5 Height (Inches): 9.00 Weight (Pounds): 165 Objective GENERAL: A well-developed male, comfortable at present. HEENT: Negative. NECK: Supple. LUNGS: Good air entry. CARDIAC: Normal S1, S2, pacemaker in place ABDOMEN: Soft, nontender. EXTREMITIES: No edema. Jay [place] MD May 11, 2020 18:30
[2020-05-11] MEDS: Tylenol #3 tab (300mg/30mg) ORAL PRN (18:55)
[2020-05-12] VITALS (18 sets, daily range): BP systolic 124–144; BP diastolic 66–94
[2020-05-12] MEDS: D5 1/2NS w/KCl 20mEq 1,000 ML IV SCH ×3 (01:47→14:43)
--- NOTE | 2020-05-12 03:00 | Progress Note ---
DATE: 05/11/2020 SUBJECTIVE: The patient's condition remains critical with guarded prognosis. He remains in the intensive care unit. He continues to have bradyarrhythmias overnight into the high 30s, now in the 40s with persisting left bundle-branch block. OBJECTIVE: VITAL SIGNS: This morning, blood pressure 111/55, pulse 36, respirations 14, afebrile, oxygen saturation on room air 99%. GENERAL: Alert. NECK: Supple. LUNGS: Clear. CARDIAC: Regular rhythm. Slow rate. Normal S1. Paradoxically split S2. ABDOMEN: Soft. EXTREMITIES: No edema. LABORATORY AND DIAGNOSTIC DATA: Chest x-ray reveals no acute process. On admission, white count 7.5, hemoglobin 14.6. Potassium is 4.8, BUN 12, creatinine 0.8. IMPRESSION: 1. Advanced conduction system disease. 2. Syncopal episode, secondary to above. 3. Hypertensive heart disease. The patient is unstable for discharge or transfer. Permanent pacemaker implant is recommended urgently. Dual-chamber device needed. Discussed with the wind turbine controls engineer. Condition presently critical and prognosis is fair. Osorio Cho M.D. DR: DOUG JOB#: [id number] CC:
[2020-05-12] MEDS: ceFAZolin sod 1 GM in D5W 55 ML IVP SCH ×2 (05:42→14:43)
--- NOTE | 2020-05-12 08:50 | General Progress Note ---
Assessment/Plan Assessment/Plan: IMPRESSION: 1. Symptomatic bradycardia, s/p pacemaker 2. Hypertension. PLAN postop care defer to cards as to dc today impression, plan, and exam edited and reviewed in detail care discussed with RN Subjective Allergies: Coded Allergies: No Known Allergies (Unverified , 05/09/20) Subjective stable overnight s/p pacemaker Objective Last 24 Hour Vital Signs Date Time Temp Pulse Resp B/P (MAP) Pulse Ox O2 Delivery O2 Flow Rate FiO2 05/12/20 07:00 60 13 132/72 (92) 99 05/12/20 06:00 60 13 142/78 (99) 97 05/12/20 05:00 98.6 61 16 129/90 (103) 98 05/12/20 04:00 Room Air 05/12/20 04:00 60 16 129/67 (87) 95 05/12/20 03:16 60 05/12/20 03:00 60 19 132/75 (94) 97 05/12/20 02:00 60 16 132/81 (98) 97 05/12/20 01:00 61 16 135/69 (91) 96 05/12/20 00:00 Room Air 05/12/20 00:00 60 05/12/20 00:00 98.5 60 16 124/68 (86) 97 05/11/20 23:00 61 16 126/73 (90) 96 05/11/20 22:00 61 20 131/68 (89) 97 05/11/20 21:33 60 20 136/77 (96) 97 05/11/20 21:30 60 15 163/79 (107) 98 05/11/20 21:00 60 20 148/76 (100) 97 05/11/20 20:30 60 20 154/81 (105) 97 05/11/20 20:00 Room Air 05/11/20 20:00 98.8 60 19 130/70 (90) 98 05/11/20 19:51 94 05/11/20 19:00 60 20 159/81 (107) 98 05/11/20 18:30 60 20 157/82 (107) 98 05/11/20 18:00 60 20 144/73 (96) 98 05/11/20 17:30 63 17 150/81 (104) 98 05/11/20 17:00 62 18 144/72 (96) 99 05/11/20 16:30 62 18 147/76 (99) 99 05/11/20 16:00 Room Air 05/11/20 16:00 60 05/11/20 16:00 98.9 60 14 146/73 (97) 99 05/11/20 15:30 61 17 155/66 (95) 99 05/11/20 15:15 61 18 147/80 (102) 99 05/11/20 15:00 63 16 158/77 (104) 99 05/11/20 14:45 60 17 153/82 (105) 99 05/11/20 14:30 60 17 159/83 (108) 99 05/11/20 14:15 60 16 160/85 (110) 98 05/11/20 14:00 60 15 144/79 (100) 98 05/11/20 13:45 60 16 138/74 (95) 100 05/11/20 13:30 60 18 157/84 (108) 100 05/11/20 13:20 60 05/11/20 13:15 60 14 127/77 (94) 100 05/11/20 13:12 Nasal Cannula 3.0 05/11/20 13:10 98.0 60 16 138/81 (100) 99 05/11/20 12:50 60 17 138/81 100 Nasal Cannula 3 05/11/20 12:45 97.6 60 16 136/76 100 Nasal Cannula 3 05/11/20 12:30 60 15 134/71 100 Nasal Cannula 3 05/11/20 12:15 60 19 127/69 100 Simple Mask 6 05/11/20 12:05 60 16 114/64 100 Simple Mask 6 05/11/20 12:01 60 18 114/69 100 Simple Mask 6 05/11/20 11:56 97.8 64 18 103/63 100 Simple Mask 6 05/11/20 11:54 70 16 100 05/11/20 10:00 59 16 115/93 (100) 97 05/11/20 09:00 49 16 141/68 (92) 100 Intake and Output 05/11/20 05/12/20 19:00 07:00 Intake Total 3665.0 ml 2810 ml Output Total 1250 ml 2300 ml Balance 2415.0 ml 510 ml Intake Oral 2100 ml 1000 ml IV Total 1545.0 ml 1810 ml Other 20 ml Output Urine Total 1250 ml 2300 ml Estimated Blood Loss 0 ml # Voids 1 5 # Bowel Movements 2 Height (Feet): 5 Height (Inches): 9.00 Weight (Pounds): 162 Objective GENERAL: A well-developed male, comfortable at present. HEENT: Negative. NECK: Supple. LUNGS: Good air entry. CARDIAC: Normal S1, S2, pacemaker in place ABDOMEN: Soft, nontender. EXTREMITIES: No edema. Jay Coloardo MD May 12, 2020 08:50
[2020-05-12] MEDS: Losartan 50mg tab ORAL SCH (09:06)
[2020-05-12] MEDS: Heparin 5000 units/ml inj SUBQ SCH (09:08)
[2020-05-12] MEDS: Tylenol #3 tab (300mg/30mg) ORAL PRN (09:23)
--- NOTE | 2020-05-12 12:11 | 48 Hour Post Anesthesia Eval ---
Post Anesthesia Evaluation Procedure: Permanent Pacemaker Placement Date of Evaluation: May 12, 2020 Time of Evaluation: 12:09 Blood Pressure Systolic: 142 0: 64 Pulse Rate: 61 Respiratory Rate: 18 Temperature (Fahrenheit): 97.6 O2 Sat by Pulse Oximetry: 98 Airway: patent Nausea: No Vomiting: No Pain Intensity: 1 Hydration Status: adequate Cardiopulmonary Status: stable Mental Status/LOC: patient returned to baseline Follow-up Care/Observations: n/a Post-Anesthesia Complications: none Follow-up care needed: N/A Ney Simmons MD May 12, 2020 12:11
--- NOTE | 2020-05-12 15:21 | Cardiac Electrophysiology PN ---
Assessment/Plan Assessment/Plan 1. Profound bradycardia causing syncope in the patient with underlying complete left bundle-branch block and intermittent complete heart block with junctional escape in the 30s. The patient is not on any sinus miri or AV miri blocking agents. Thyroid function tests are within normal range and he was already ruled out for myocardial infarction. The patient's echocardiogram also showed normal left ventricular systolic function. S/P DDD [employer] A[employer] pacer implantation yesterday. Interrogation showed Nl FX. CXR no PtX . Incision no hematoma DW RN and Dr Cho. OK to DC from cardiac standpoint Subjective Subjective Doing very well post PPM implant. In ICU. A sense and V paced Objective Last 24 Hour Vital Signs Date Time Temp Pulse Resp B/P (MAP) Pulse Ox O2 Delivery O2 Flow Rate FiO2 05/12/20 13:00 60 17 139/79 (99) 97 05/12/20 12:11 61 18 98 05/12/20 12:00 Room Air 05/12/20 12:00 60 05/12/20 12:00 98.0 60 18 142/85 (104) 98 05/12/20 11:00 60 18 139/79 (99) 97 05/12/20 10:00 60 20 138/73 (94) 98 05/12/20 09:53 97.6 05/12/20 09:06 132/72 05/12/20 09:00 65 19 142/66 (91) 97 05/12/20 08:00 60 05/12/20 08:00 Room Air 05/12/20 08:00 98.4 60 18 142/73 (96) 98 05/12/20 07:00 60 13 132/72 (92) 99 05/12/20 06:00 60 13 142/78 (99) 97 05/12/20 05:00 98.6 61 16 129/90 (103) 98 05/12/20 04:00 Room Air 05/12/20 04:00 60 16 129/67 (87) 95 05/12/20 03:16 60 05/12/20 03:00 60 19 132/75 (94) 97 05/12/20 02:00 60 16 132/81 (98) 97 05/12/20 01:00 61 16 135/69 (91) 96 05/12/20 00:00 Room Air 05/12/20 00:00 60 05/12/20 00:00 98.5 60 16 124/68 (86) 97 05/11/20 23:00 61 16 126/73 (90) 96 05/11/20 22:00 61 20 131/68 (89) 97 05/11/20 21:33 60 20 136/77 (96) 97 05/11/20 21:30 60 15 163/79 (107) 98 05/11/20 21:00 60 20 148/76 (100) 97 05/11/20 20:30 60 20 154/81 (105) 97 05/11/20 20:00 Room Air 05/11/20 20:00 98.8 60 19 130/70 (90) 98 05/11/20 19:51 94 05/11/20 19:00 60 20 159/81 (107) 98 05/11/20 18:30 60 20 157/82 (107) 98 05/11/20 18:00 60 20 144/73 (96) 98 05/11/20 17:30 63 17 150/81 (104) 98 05/11/20 17:00 62 18 144/72 (96) 99 05/11/20 16:30 62 18 147/76 (99) 99 05/11/20 16:00 Room Air 05/11/20 16:00 60 05/11/20 16:00 98.9 60 14 146/73 (97) 99 05/11/20 15:30 61 17 155/66 (95) 99 05/11/20 15:15 61 18 147/80 (102) 99 Intake and Output 05/11/20 05/12/20 19:00 07:00 Intake Total 3665.0 ml 2810 ml Output Total 1250 ml 2300 ml Balance 2415.0 ml 510 ml Intake Oral 2100 ml 1000 ml IV Total 1545.0 ml 1810 ml Other 20 ml Output Urine Total 1250 ml 2300 ml Estimated Blood Loss 0 ml # Voids 1 5 # Bowel Movements 2 Objective HEAD AND NECK: Showed no JVD or carotid bruit. LUNGS: Clear. CARDIOVASCULAR: Pacer left subclavian no hematoma or oozing ABDOMEN: Soft. EXTREMITIES: No pitting edema. Reji Biswas MD May 12, 2020 15:21
--- NOTE | 2020-05-12 23:59 | Progress Note ---
DATE: 05/12/2020 CARDIOLOGY PROGRESS NOTE SUBJECTIVE: Patient is status post permanent pacemaker implant yesterday. No complications were noted. The device was interrogated today and functioning appropriately. PHYSICAL EXAMINATION: VITAL SIGNS: Blood pressure 131/94, heart rate 61, respirations 18. LUNGS: Clear. Chest wall with no significant swelling, redness, or drainage at pacemaker pocket site. CARDIAC: Regular rhythm and rate. Normal S1, S2. Monitor reveals atrial pacing. ABDOMEN: Soft. EXTREMITIES: No edema. IMPRESSION: 1. Advanced conduction system disease with symptomatic bradyarrhythmias, now status post permanent pacemaker. 2. History of hypertension. PLAN: 1. Outpatient followup. 2. May benefit from low-dose beta-ignacio. To be determined upon outpatient reassessment. 3. We would avoid thiazide diuretic at this time in view of presenting prerenal azotemia. Osorio Cho M.D. DR: POPPY JOB#: [id number] CC:
--- NOTE | 2020-05-16 10:41 | Discharge Summary ---
Discharge Summary Discharge Summary _ DATE OF ADMISSION: 05/09/2020 DATE OF DISCHARGE: 05/12/2020 DISCHARGED BY: Dr. [place] REASON FOR ADMISSION: 59 years old male with past medical history of hypertension , presented with syncopal episode and generalized weakness. Patient was significantly bradycardic. EKG revealed junctional rythm in 30 th with left bundle branch block. Patient required atropine in the emergency department.. Laboratory work-up revealed normal troponin. No leukocytosis, stable hemoglobin and hematocrit. BUN 20, creatinine 1.3. Glucose 129. Chest x-ray demonstrated no evidence of acute cardiopulmonary pathology. Patient received atropine in ED and admitted to ICU for further management. CONSULTANTS: bi technical lead Dr. Cho cardiac traffic attendant Dr. Ng [facility] COURSE: Patient admitted to ICU. External pacer and atropine were at bedside . Library Assistant and cardio-traffic attendant followed. DVT prophylaxis provided. Blood pressure was closely monitored. Per bi technical lead patient had advanced conduction system disease with symptomatic bradycardia , resulting in syncope. Patient was hydrated . Potassium was replaced Echocardiogram was done to check for any structural cardiac disease and revealed preserved ejection fraction 60 to 65%. No evidence of left ventricular hypertrophy. No evidence of wall motion abnormality. Card According to cardio-traffic attendant, patient had profound bradycardia causing syncope due to underlying complete left bundle branch block and intermittent complete heart block with a junctional escape in 30s. That was a class I indication for permanent pacemaker implantation. Patient subsequently undergone on 05/11 dual-chamber permanent pacemaker implantation . Pacemaker was programmed with lower rate of 60 and upper rate of 120. Patient tolerated procedure well. Patient was on empiric antibiotics. Postprocedure chest x-ray confirmed placement of pacemaker. No evidence of complications. Left arm was elevated. Pain management was addressed. Supportive care provided. Patient clinically stabilized and was ready for discharge home. FINAL DIAGNOSES: Advanced conduction system disease with symptomatic bradycardia resulting in syncope Intermittent complete heart block with junctional escape in 30s Complete left bundle branch block Status post dual-chamber permanent pacemaker implantation 7 8 Hypertension DISCHARGE MEDICATIONS: List of medication was sent with patient . DISCHARGE INSTRUCTIONS: Patient was discharged home. Outpatient follow-up with a primary care provider and bi technical lead. I have been assigned to dictate discharge summary for this account. I was not involved in the patient's management. Zahira Chadwick NP May 16, 2020 10:41
== END 2020-05-12 17:30 | disposition home or self-care (01) | DRG 244 ==
LOC: EDBD 08:29 → EMR 09:08 → ICU 10:29 → EDBEDREQ 11:13 → ICU 12:41
PROC: 02H63JZ Insertion of Pacemaker Lead into Right Atrium, Percutaneous Approach (ICD-10-PCS; principal; 2020-05-11 10:30)
PROC: 02HK3JZ Insertion of Pacemaker Lead into Right Ventricle, Percutaneous Approach (ICD-10-PCS; principal; 2020-05-11 10:30)
PROC: 0JH606Z Insertion of Pacemaker, Dual Chamber into Chest Subcutaneous Tissue and Fascia, Open Approach (ICD-10-PCS; principal; 2020-05-11 10:30)
DX: I44.2 Atrioventricular block, complete (principal); I44.7 Left bundle-branch block, unspecified; I49.8 Other specified cardiac arrhythmias; R19.7 Diarrhea, unspecified; E78.5 Hyperlipidemia, unspecified; I10 Essential (primary) hypertension
CPT/HCPCS: 36415; 71045; 76000; 80048; 80053; 83690; 83735; 83880; 84443; 84484; 85025; 85379; 85610; 85730; 87081; 93005; 93306; 94003; 94150; 96361; 96374; 99291; J7030; U0002